=== PATIENT | female | born 1975 | race Caucasian/White ===

== ENCOUNTER 2017-01-28 07:41 | Emergency (ER) | payer BC ==
--- NOTE | 2017-01-28 08:25 | ERNOTE ---
Dizziness ER Record Presenting Symptoms: dizziness Time Seen by Provider: 01/28/17 08:07 Source: patient Exam Limitations: no limitations Immunizations: IMMUNIZATION HX History of Influenza Vaccine Yes Allergies/Adverse Reactions: Allergies Allergy/AdvReac Type Severity Reaction Status Date / Time No Known Allergies Allergy Verified 01/28/17 08:04 Home Medications: HOME MEDICATIONS NK [No Home Medication] 01/28/17 [Last Taken Unknown] - History of Present Illness Narrative: Patient has had intermittent episodes of dizziness for at least a couple of months, usually daily, briefly, and not associated to any activity or particular situation. Today she had been up for about an hour when she started to get dizzy/lightheaded, face felt flushed, hands sweaty, palpitations. She denies shortness of breath, no chest pain, no syncope,nausea, no vomiting, no abdominal pain, no recent illness. 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 Symptoms lasted about 30minutes Date (Duration): 01/28/17 Time (Timing): 07:45 Timing and Duration: sudden onset Review of Systems - Review of Systems Constitutional: Absent: recent illness, fever, chills EYE: Absent: vision changes ENT: Absent: nose congestion, throat swelling Respiratory: Absent: shortness of breath, cough Cardiology: Present: See HPI, palpitations. Absent: chest pain, syncope Gastrointestinal/Abdominal: Present: See HPI, nausea. Absent: vomiting, diarrhea, abdominal pain Genitourinary: Present: no symptoms reported Musculoskeletal: Present: no symptoms reported. Absent: back pain Neurological: Absent: headache, weakness, numbness - Patient's Past Medical History Patient History - Medical: No pertinent hx Patient History - Cardiac/Respiratory: No pertinent hx Patient History - Cancer: No Hx of Cancer Patient History - Surgical Procedures: Tubal Ligation Patient History - Other: None - Social History Living Situations: home Abuse History: No History of abuse Psych History: No pertinent hx Smoking Status: Current every day smoker Have you smoked in the past 12 months: Yes Alcohol Use: none Drug Use: none - Immunizations History of Influenza Vaccine: Yes Physical Exam - Physical Exam General Appearance: Present: wd/wn, alert, no apparent distress Eye Exam: Normal inspection: bilateral, PERRL: bilateral, EOMI: bilateral Ears, Nose, Throat: Present: normal ENT inspection, normal pharynx Neck: Present: normal inspection, nontender, supple, full range of motion Respiratory: Present: no respiratory distress, normal breath sounds, no accessory muscle use, lungs clear Cardiovascular/Chest: Present: regular rate, rhythm, no murmur, normal peripheral pulses Gastrointestinal/Abdominal: Present: normal bowel sounds, nontender, nondistended, soft Back Exam: Present: normal inspection, normal range of motion Extremity Exam: Present: no edema Neurological Exam: Present: alert, oriented, normal mood/affect, no motor/ sensory deficits, 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 - Vital Signs Patient's Vital Signs:: I have reviewed the patient's vital signs. Vital Signs: Vital Signs 01/28/17 07:45 Temperature 36.3 C L Pulse Rate 95 Respiratory 12 Rate Blood Pressure 141/82 O2 Sat by Pulse 100 Oximetry - EKG EKG: NSR, other - no acute changes EKG read: Interp. by me - Progress/Reassessment Chief Complaint: General Assessment Progress Note-Subjective: 01/28/17 09:30 discussed results with patient and family 01/28/17 09:37 discussed with freedom Srivastava to order holter follow up appointment next week Departure Clinical Impression: Palpitations - Departure Disposition: Home self-care Condition: Good Instructions: Palpitations, [id number], Form - Excuse from Work, School, or Physical Activity Referrals: Radha Alexander MD [Primary Care Provider] - 02/03/17 3:30 pm
[2017-01-28 08:33] LABS: Hematocrit 44.8 % (37.0-47.0); Hemoglobin 15.3 gm/dL (12.5-16.0); Mean Cell Volume 93.3 fl (78-100); Mean Corpuscular Hemoglobin 31.9 pg (27-31); Mean Corpuscular Hgb Conc 34.2 g/dl (32-36); Mean Platelet Volume 8.9 fl (6.0-9.5); Neutrophil # 5.5 K/mm3 (1.3-6.0); Neutrophil % 70.5 % (42-75.0); Platelet Count 341 K/mm3 (150-450); White Blood Count 7.8 K/mm3 (4.0-10.5)
[2017-01-28 08:49] LABS: Albumin * 4.1 gm/dl (3.4-5.0); BUN/Creatinine Ratio 12.1 (9.0-21.6); Bilirubin, Total 0.6 mg/dL (0.0-1.1); Ca. Corrected For Albumin 8.6 mg/dL (8.4-10.2); Potassium 4.8 mmol/L (3.4-4.6); TSH * 2.632 uIU/mL (0.358-3.74); Total Protein 7.9 gm/dL (6.2-8.2)
[2017-01-28 08:54] LABS: Anion Gap 13.3 mmol/L (6.8-13.8); Carbon Dioxide 27.5 mmol/L (24-32.6)
[2017-01-28 08:59] VITALS: BP 134/79
== END 2017-01-28 10:00 | disposition home or self-care (01) ==
LOC: ER 07:41
DX: R00.2 Palpitations (principal); Z72.0 Tobacco use